=== PATIENT | female | born 1985 | race Two or more races ===

== ENCOUNTER 2025-07-28 11:06 | Emergency (ER) | payer MEDICAID ==
[~2025-07-28] VITALS: Ht 165.1 cm; Wt 75.0 kg
[2025-07-28 11:22] VITALS: TEMP 37; O2SAT 98
[2025-07-28] MEDS: LIDOCAINE 5% PATCH TOP STA (12:07)
[2025-07-28] MEDS ORDERED: CYCL10TA21 MT (13:33)
[2025-07-28] MEDS ORDERED: LIDO700A30 TP (13:33)
[2025-07-28] MEDS ORDERED: IBUP-2030 MT (13:33)
[2025-07-28] MEDS: KETOROLAC 30MG/ML VIAL IM ONE (14:18)
[2025-07-28 14:47] VITALS: BP 113/77; PULSE 69; RESP 16; O2SAT 100
== END 2025-07-28 14:49 | disposition home or self-care (01) ==
LOC: ER 11:06
DX: M79.642 Pain in left hand (principal); M79.605 Pain in left leg; M25.532 Pain in left wrist; M25.552 Pain in left hip
CPT/HCPCS: 99283; 81025; 73130; 96372; J1885